=== PATIENT | female | born 1965 | race Caucasian/White ===

== ENCOUNTER 2016-10-25 10:21 | Emergency (ER) | payer SELFPAY ==
[2016-10-25] MEDS ORDERED: DELTASONE 20 MG PO ONE (10:51)
--- NOTE | 2016-10-25 10:57 | ERPHSYRPT ---
- History of Present Illness Time Seen by Provider: 10/25/16 10:45 Source: patient Exam Limitations: clinical condition Patient Subjective Stated Complaint: bit by a gnat on left eye. c/o swelling and itching Triage Nursing Assessment: ambulated to room per self. skin w/d, color normal. moderate swelling below left eye. no drainage noted. area red Physician History: PATIENT BITTEN BY SNAT OVER LEFT EYE BROW YESTERDAY COMPLAINS OF SWELLING BELOW LEFT EYE LID SINCE YESTERDAY ASSOCIATED WITH ITCHING. DENIES DIFFICULTY BREATHING OR SWELLING. Timing/Duration: yesterday Quality: itchy Severity: moderate Location: other (LEFT EYE LIDS) Possible Causes: insect sting Modifying Factors: Improves With: antihistamine, scratching Allergies/Adverse Reactions: No Known Drug Allergies Allergy (Verified 10/25/16 10:38) Home Medications: Lisinopril/Hydrochlorothiazide [Lisinopril-Hctz 20-12.5 mg Tab] 1 tab PO DAILY 06/05/12 [History] Gabapentin [Neurontin] 300 mg PO TID 04/28/14 [History] Hx Tetanus, Diphtheria Vaccination/Date Given: Yes Hx Influenza Vaccination/Date Given: No Hx Pneumococcal Vaccination/Date Given: No - Review of Systems Constitutional: No Fever, No Chills Eyes: Other (ANGIOEDEMA LEFT LOWER EYE LID, NO UPPER EYE LID, SWELLING, NO CONJUNCTIVA ERYTHERMA, DRAINAGE) Ears, Nose, & Throat: No Symptoms Respiratory: No Symptoms, No Cough, No Dyspnea Cardiac: No Symptoms, No Chest Pain, No Edema, No Syncope Abdominal/Gastrointestinal: No Abdominal Pain, No Nausea, No Vomiting, No Diarrhea Genitourinary Symptoms: No Dysuria Musculoskeletal: No Back Pain, No Neck Pain Skin: No Rash Neurological: No Dizziness, No Focal Weakness, No Sensory Changes Psychological: No Symptoms Endocrine: No Symptoms All Other Systems: Reviewed and Negative - Past Medical History Pertinent Past Medical History: Yes Neurological History: Migraines ENT History: No Pertinent History Cardiac History: Hypertension Respiratory History: No Pertinent History Endocrine Medical History: No Pertinent History Musculoskeletal History: Other GI Medical History: No Pertinent History History: No Pertinent History Psycho-Social History: No Pertinent History Female Reproductive Disorders: No Pertinent History Other Medical History: bulging disc - Past Surgical History Past Surgical History: Yes Neuro Surgical History: No Pertinent History Cardiac: No Pertinent History Respiratory: No Pertinent History Gastrointestinal: No Pertinent History Genitourinary: No Pertinent History Musculoskeletal: No Pertinent History Female Surgical History: Tubal Ligation, Other Other Surgical History: ovary removed w/cyst ,childbirth x two - Social History Smoking Status: Current every day smoker How long have you smoked: 20 Exposure to second hand smoke: No Drug Use: none Patient Lives Alone: No - Female History Hx Now: No - Nursing Vital Signs Nursing Vital Signs: Initial Vital Signs Temperature 97.8 F Temperature Source Oral Pulse Rate 96 Respiratory Rate 16 Blood Pressure [Right Arm] 117/82 Pain Intensity 5 - Physical Exam General Appearance: no apparent distress, alert Eye Exam: PERRL/EOMI, eyes nml inspection Ears, Nose, Throat Exam: normal ENT inspection, pharynx normal, moist mucous membranes Neck Exam: normal inspection, non-tender, supple, full range of motion Respiratory Exam: normal breath sounds, lungs clear, No respiratory distress Cardiovascular Exam: regular rate/rhythm, normal heart sounds Gastrointestinal/Abdomen Exam: soft, mass, No tenderness Back Exam: normal inspection, normal range of motion, No CVA tenderness, No vertebral tenderness Extremity Exam: normal inspection, normal range of motion Neurologic Exam: alert, oriented x 3, cooperative, normal mood/affect, sensation nml, No motor deficits Skin Exam: normal color, warm, dry SpO2: 97 Oxygen Delivery: Room Air Ordered Tests: Medication Summary Generic Name Dose Route Start Last Admin Trade Name Radha PRN Reason Stop Dose Admin Prednisone 40 mg 10/25/16 10:51 Deltasone 20 Mg PO 10/25/16 10:52 STAT ONE - Progress Progress Note: 10/25/16 10:55 PATIENT GIVEN PREDNISONE 40MG ORALLY Counseled pt/family regarding: diagnosis, need for follow-up - Departure Time of Disposition: 11:00 Departure Disposition: Home Clinical Impression: LEFT INFRAORBITAL SWELLING INSECT BITE Condition: Stable Critical Care Time: No Additional Instructions: TAKE OVER THE COUNTER BENADRYL 50MG EVERY 4 HOURS WHEN NOT AT WORK. CONTINUE TO APPLY ICE OVER EYE SWELLING EVERY 4 HOURS, 30 MINUTES FOR 24 HOURS. PREDNISONE 40MG DAILY FOR 5 DAYS, AND CONSULT YOUR FAMILY PHYSICIAN FOR EVALUATION IN 1 WEEK. Prescriptions: Prednisone 20 mg [Deltasone 20 mg] 2 tab PO DAILY #8 tablet
[2016-10-25] MEDS ORDERED: DELTASONE 20 MG ONE (10:58)
[2016-10-25 11:12] VITALS: BP 99/70; PULSE 91; O2SAT 96
== END 2016-10-25 11:12 | disposition home or self-care (01) ==
LOC: ED 10:21
DX: H02.845 Edema of left lower eyelid (principal); S00.262A Insect bite (nonvenomous) of left eyelid and periocular area, initial encounter; W57.XXXA Bitten or stung by nonvenomous insect and other nonvenomous arthropods, initial encounter
CPT/HCPCS: 99283; J7506

== ENCOUNTER 2016-11-18 10:45 | Emergency (ER) | payer SELFPAY ==
[2016-11-18 10:59] VITALS: O2SAT 97
[2016-11-18] MEDS ORDERED: Indocin 25 MG PO ONE (10:59)
[2016-11-18] MEDS ORDERED: Indocin 25 MG ONE ×2 (11:03)
--- NOTE | 2016-11-18 11:05 | ERPHSYRPT ---
- History of Present Illness Time Seen by Provider: 11/18/16 11:00 Source: patient Exam Limitations: no limitations Patient Subjective Stated Complaint: states began having pain in right foot last night. Triage Nursing Assessment: ambulated to room limping on right foot. skin w/d, color normal, resp easy. right great toe swollen and red. tender to touch Physician History: c/o pain in left foot base of great toe since last night Method of Injury: unknown Occurred: yesterday Quality: constant, burning Severity of Pain-Max: moderate Severity of Pain-Current: moderate Lower Extremities Pain: 1st toe: left Modifying Factors: Improves With: nothing Associated Symptoms: none Allergies/Adverse Reactions: No Known Drug Allergies Allergy (Verified 10/25/16 10:38) Home Medications: Lisinopril/Hydrochlorothiazide [Lisinopril-Hctz 20-12.5 mg Tab] 1 tab PO DAILY 06/05/12 [History] Gabapentin [Neurontin] 300 mg PO TID 04/28/14 [History] Hx Tetanus, Diphtheria Vaccination/Date Given: Yes Hx Influenza Vaccination/Date Given: No Hx Pneumococcal Vaccination/Date Given: No - Review of Systems Constitutional: No Symptoms, No Fever, No Chills Respiratory: No Symptoms Cardiac: No Symptoms Abdominal/Gastrointestinal: No Symptoms Musculoskeletal: Joint Pain (left base of great toe), Joint Swelling Skin: Induration (left base of great toe) - Past Medical History Pertinent Past Medical History: Yes Neurological History: Migraines ENT History: No Pertinent History Cardiac History: Hypertension Respiratory History: No Pertinent History Endocrine Medical History: No Pertinent History Musculoskeletal History: Other GI Medical History: No Pertinent History History: No Pertinent History Psycho-Social History: No Pertinent History Female Reproductive Disorders: No Pertinent History Other Medical History: bulging disc - Past Surgical History Past Surgical History: Yes Neuro Surgical History: No Pertinent History Cardiac: No Pertinent History Respiratory: No Pertinent History Gastrointestinal: No Pertinent History Genitourinary: No Pertinent History Musculoskeletal: No Pertinent History Female Surgical History: Tubal Ligation, Other Other Surgical History: ovary removed w/cyst ,childbirth x two - Social History Smoking Status: Current every day smoker How long have you smoked: 20 Exposure to second hand smoke: No Drug Use: none Patient Lives Alone: No - Female History Hx Now: No - Nursing Vital Signs Nursing Vital Signs: Initial Vital Signs Temperature 97.9 F Temperature Source Oral Pulse Rate 95 Respiratory Rate 18 Blood Pressure [Right Arm] 124/70 Pain Intensity [Right Foot] 7 Pain Intensity 7 - Physical Exam General Appearance: no apparent distress Foot Exam: left foot: soft tissue tenderness (left base of great toe), swelling Neuro/Tendon Exam: normal sensation Mental Status Exam: alert, oriented x 3 SpO2: 97 Oxygen Delivery: Room Air - Course Nursing assessment & vital signs reviewed: Yes Ordered Tests: Medication Summary Discontinued Medications Generic Name Dose Route Start Last Admin Trade Name Radha PRN Reason Stop Dose Admin Indomethacin 50 mg 11/18/16 10:59 11/18/16 11:04 Indocin 25 Mg PO 11/18/16 11:00 50 mg STAT ONE Administration Indomethacin Confirm 11/18/16 11:03 Indocin 25 Mg Administered 11/18/16 11:04 Dose 25 mg .ROUTE .STK-MED ONE Indomethacin Confirm 11/18/16 11:03 Indocin 25 Mg Administered 11/18/16 11:04 Dose 25 mg .ROUTE .STK-MED ONE - Progress Progress: unchanged Counseled pt/family regarding: diagnosis, need for follow-up - Departure Time of Disposition: 11:03 Departure Disposition: Home Clinical Impression: Gouty arthritis of toe of left foot Condition: Stable Critical Care Time: No Referrals: ALISON ROSE [Primary Care Provider] - Instructions: Gout Prescriptions: Indomethacin 25 mg [Indocin 25 MG] 25 mg PO TID #15 capsule
[2016-11-18 11:12] VITALS: BP 105/73; PULSE 94
== END 2016-11-18 11:18 | disposition home or self-care (01) ==
LOC: ED 10:45 → EDSTATUS 11:04 → ED 11:18
DX: M10.072 Idiopathic gout, left ankle and foot (principal)
CPT/HCPCS: 99283; A9270-GY

== ENCOUNTER 2017-05-24 11:25 | Emergency (ER) | payer OTHER, SELFPAY ==
[2017-05-24 12:02] VITALS: O2SAT 95
--- NOTE | 2017-05-24 12:25 | ERPHSYRPT ---
- History of Present Illness Time Seen by Provider: 05/24/17 12:20 Source: patient Exam Limitations: no limitations Patient Subjective Stated Complaint: pt here for pain to right foot, no injury noted. pain since saturday, Triage Nursing Assessment: pt has redness and warmth to right inner aspect of foot Physician History: The patient complains of right great toe pain, redness, and swelling for 3 days. She thinks it is gout because she had the same thing happen a few years ago to the same toe. It is difficult for her to walk. She denies fever or chills. Her past medical history significant for gout and hypertension. Method of Injury: other Occurred: days ago (3) Quality: burning, sharpness Severity of Pain-Max: severe Severity of Pain-Current: severe Lower Extremities Pain: 1st toe: right Modifying Factors: Improves With: nothing Associated Symptoms: unable to bear weight Allergies/Adverse Reactions: No Known Drug Allergies Allergy (Verified 05/24/17 12:02) Home Medications: Lisinopril/Hydrochlorothiazide [Lisinopril-Hctz 20-12.5 mg Tab] 1 tab PO DAILY 06/05/12 [History] Hx Tetanus, Diphtheria Vaccination/Date Given: Yes Hx Influenza Vaccination/Date Given: No Hx Pneumococcal Vaccination/Date Given: No Immunizations Up to Date: Yes - Review of Systems Constitutional: No Fever, No Chills Eyes: No Symptoms Ears, Nose, & Throat: No Symptoms Respiratory: No Cough, No Dyspnea Cardiac: No Chest Pain, No Edema, No Syncope Abdominal/Gastrointestinal: No Abdominal Pain, No Nausea, No Vomiting, No Diarrhea Genitourinary Symptoms: No Dysuria Musculoskeletal: Joint Redness, Joint Pain, Joint Swelling, No Back Pain, No Neck Pain Skin: No Rash Neurological: No Dizziness, No Focal Weakness, No Sensory Changes Psychological: No Symptoms Endocrine: No Symptoms Hematologic/Lymphatic: No Symptoms Immunological/Allergic: No Symptoms All Other Systems: Reviewed and Negative - Past Medical History Pertinent Past Medical History: Yes Neurological History: Migraines ENT History: No Pertinent History Cardiac History: Hypertension Respiratory History: No Pertinent History Endocrine Medical History: No Pertinent History Musculoskeletal History: Other GI Medical History: No Pertinent History History: No Pertinent History Psycho-Social History: No Pertinent History Female Reproductive Disorders: No Pertinent History Other Medical History: bulging disc - Past Surgical History Past Surgical History: Yes Neuro Surgical History: No Pertinent History Cardiac: No Pertinent History Respiratory: No Pertinent History Gastrointestinal: No Pertinent History Genitourinary: No Pertinent History Musculoskeletal: No Pertinent History Female Surgical History: Tubal Ligation, Other Other Surgical History: ovary removed w/cyst ,childbirth x two - Social History Smoking Status: Current every day smoker How long have you smoked: 20 Exposure to second hand smoke: Yes Drug Use: none Patient Lives Alone: No - Female History Hx Last Menstrual Period: post Hx Now: No - Nursing Vital Signs Nursing Vital Signs: Initial Vital Signs Temperature 98.5 F 05/24/17 11:58 Pulse Rate 82 05/24/17 11:58 Respiratory Rate 16 05/24/17 11:58 Blood Pressure 150/73 05/24/17 11:58 O2 Sat by Pulse Oximetry 95 05/24/17 11:58 Pain Scale Pain Intensity 8 - Physical Exam General Appearance: mild distress Eyes, Ears, Nose, Throat Exam: moist mucous membranes Neck Exam: non-tender, supple Cardiovascular/Respiratory Exam: chest non-tender, normal breath sounds, regular rate/rhythm, no respiratory distress Gastrointestinal/Abdominal Exam: non-tender, guarding Back Exam: normal inspection, No vertebral tenderness Hips Exam: bilateral: non-tender Legs Exam: bilateral leg: non-tender Knees Exam: bilateral knee: non-tender Ankle Exam: bilateral ankle: non-tender Foot Exam: right foot: pain, soft tissue tenderness, swelling (great toe MTP joint), left foot: non-tender, normal inspection Neuro/Tendon Exam: normal sensation, normal motor functions Mental Status Exam: alert, oriented x 3, cooperative Skin Exam: normal color, warm, dry SpO2 Interpretation: normal SpO2: 95 Oxygen Delivery: Room Air - Departure Time of Disposition: 12:23 Departure Disposition: Home Clinical Impression: Gouty arthritis of right great toe Condition: Stable Critical Care Time: No Referrals: WADE FRASER [Primary Care Provider] - Additional Instructions: You have gout of your right great toe. You were given Toradol 60 mg by IM injection in the ER. Take Toradol 10 mg 4 times a day for 5 days. Stay well hydrated. Avoid red meats. Follow-up as needed. Prescriptions: Ketorolac Tromethamine [Toradol] 10 mg PO QID #20 tablet
[2017-05-24] MEDS ORDERED: TORAdol 30 mg Injection IM ONE (12:26)
[2017-05-24] MEDS ORDERED: TORAdol 30 mg Injection ONE (12:29)
[2017-05-24 12:36] VITALS: BP 109/71; PULSE 88
== END 2017-05-24 12:49 | disposition home or self-care (01) ==
LOC: ED 11:25
DX: M10.071 Idiopathic gout, right ankle and foot (principal)
CPT/HCPCS: 99283; J1885

== ENCOUNTER 2017-12-20 12:00 | Emergency (ER) | payer OTHER ==
[2017-12-20 12:09] VITALS: O2SAT 98
--- NOTE | 2017-12-20 12:39 | ERPHSYRPT ---
- History of Present Illness Time Seen by Provider: 12/20/17 12:28 Source: patient Exam Limitations: no limitations Patient Subjective Stated Complaint: PT states "I am having a horrible gout flair up." Triage Nursing Assessment: Pt alert and oriented X 3, skin pwd. Pt ambulates with a limp. Pt let great toe joint, red, swollen, tender. Physician History: The patient is a 52-year-old female who comes in complaining of a 2 day history of left great toe joint pain, redness, and swelling. She has a history of gout. She believes this is a flareup of her gout. She does eat meat. She does not take anything to prevent gout. She has been taking ibuprofen yesterday and this morning without relief. She went to work for one hour and then had to leave because of the pain. Her past medical history significant for gout and hypertension. Method of Injury: other (gouty arthritis) Occurred: yesterday Quality: constant, sharpness Severity of Pain-Max: moderate Severity of Pain-Current: moderate Lower Extremities Pain: 1st toe: left Modifying Factors: Improves With: pain medication (ibuprofen) Associated Symptoms: none Allergies/Adverse Reactions: No Known Drug Allergies Allergy (Verified 05/24/17 12:02) Home Medications: Lisinopril/Hydrochlorothiazide [Lisinopril-Hctz 20-12.5 mg Tab] 1 tab PO DAILY 06/05/12 [History] Hx Tetanus, Diphtheria Vaccination/Date Given: Yes Hx Influenza Vaccination/Date Given: No Hx Pneumococcal Vaccination/Date Given: No Immunizations Up to Date: Yes - Review of Systems Constitutional: No Fever, No Chills Eyes: No Symptoms Ears, Nose, & Throat: No Symptoms Respiratory: No Cough, No Dyspnea Cardiac: No Chest Pain, No Edema, No Syncope Abdominal/Gastrointestinal: No Abdominal Pain, No Nausea, No Vomiting, No Diarrhea Genitourinary Symptoms: No Dysuria Musculoskeletal: Joint Redness, Joint Pain, No Back Pain, No Neck Pain Skin: No Rash Neurological: No Dizziness, No Focal Weakness, No Sensory Changes Psychological: No Symptoms Endocrine: No Symptoms Hematologic/Lymphatic: No Symptoms Immunological/Allergic: No Symptoms All Other Systems: Reviewed and Negative - Past Medical History Pertinent Past Medical History: Yes Neurological History: Migraines ENT History: No Pertinent History Cardiac History: Hypertension Respiratory History: No Pertinent History Endocrine Medical History: No Pertinent History Musculoskeletal History: Other GI Medical History: No Pertinent History History: No Pertinent History Psycho-Social History: No Pertinent History Female Reproductive Disorders: No Pertinent History Other Medical History: bulging disc - Past Surgical History Past Surgical History: Yes Neuro Surgical History: No Pertinent History Cardiac: No Pertinent History Respiratory: No Pertinent History Gastrointestinal: No Pertinent History Genitourinary: No Pertinent History Musculoskeletal: No Pertinent History Female Surgical History: Tubal Ligation, Other Other Surgical History: ovary removed w/cyst ,childbirth x two - Social History Smoking Status: Current every day smoker How long have you smoked: years Exposure to second hand smoke: Yes Drug Use: none Patient Lives Alone: No - Female History Hx Last Menstrual Period: menopaus Hx Now: No - Nursing Vital Signs Nursing Vital Signs: Initial Vital Signs Temperature 98.0 F 12/20/17 12:04 Pulse Rate 104 H 12/20/17 12:04 Respiratory Rate 18 12/20/17 12:04 Blood Pressure 116/88 12/20/17 12:04 O2 Sat by Pulse Oximetry 98 12/20/17 12:04 Pain Scale Pain Intensity 8 - Physical Exam General Appearance: alert Eyes, Ears, Nose, Throat Exam: moist mucous membranes Neck Exam: non-tender, supple Cardiovascular/Respiratory Exam: chest non-tender, normal breath sounds, regular rate/rhythm, no respiratory distress Gastrointestinal/Abdominal Exam: non-tender, guarding Back Exam: normal inspection, No vertebral tenderness Hips Exam: bilateral: normal inspection Legs Exam: bilateral leg: normal inspection Knees Exam: bilateral knee: normal inspection Ankle Exam: bilateral ankle: normal inspection Foot Exam: left foot: limited range of motion, pain (first MTP joint), soft tissue tenderness, swelling Neuro/Tendon Exam: normal sensation, normal motor functions Mental Status Exam: alert, oriented x 3, cooperative Skin Exam: normal color, warm, dry SpO2 Interpretation: normal SpO2: 98 Oxygen Delivery: Room Air - Progress Progress: improved Counseled pt/family regarding: diagnosis - Departure Time of Disposition: 12:43 Departure Disposition: Home Clinical Impression: Gout attack Condition: Stable Critical Care Time: No Referrals: WADE FRASER [Primary Care Provider] - Additional Instructions: You are having an acute gout attack. You were given Toradol 60 mg by IM in the ER. Continue with Toradol 10 mg orally 4 times a day for the next 4 days. Stay well hydrated. Follow-up as needed with your primary care doctor. Prescriptions: Ketorolac Tromethamine [Toradol] 10 mg PO QID #16 tablet
[2017-12-20] MEDS ORDERED: TORAdol 30 mg Injection IM ONE (12:42)
[2017-12-20] MEDS ORDERED: TORAdol 30 mg Injection ONE (12:48)
[2017-12-20 13:08] VITALS: BP 99/68; PULSE 80
== END 2017-12-20 13:08 | disposition home or self-care (01) ==
LOC: ED 12:00
DX: M10.9 Gout, unspecified (principal)
CPT/HCPCS: 96372; 99283; J1885

== ENCOUNTER 2018-02-10 14:52 | Emergency (ER) | payer SELFPAY ==
--- NOTE | 2018-02-10 15:27 | ERPHSYRPT ---
- History of Present Illness Time Seen by Provider: 02/10/18 15:22 Source: patient Exam Limitations: no limitations Patient Subjective Stated Complaint: pt c/o moist persistent cough, chills, weakness since Saturday 02/03. c/o ear pain with cough, sputum thick yellow Triage Nursing Assessment: Pt A/O speech clear, resp sl labored, exertional SOB , persistent cough. Physician History: The patient is a 52-year-old female complaining of a cough with sputum for one week. It has gotten worse over the past couple of days. She doesn't know if she's had a fever. She smokes. She is slightly short of breath. Her past medical history is significant for gout and hypertension. Timing/Duration: week(s) (1), gradual onset, worse Cough Quality/Degree: moderate, productive cough Possible Cause: occasional episodes, smoke exposure Modifying Factors: Improves With: coughing Associated Symptoms: cough, shortness of breath Allergies/Adverse Reactions: No Known Drug Allergies Allergy (Verified 05/24/17 12:02) Home Medications: Lisinopril/Hydrochlorothiazide [Lisinopril-Hctz 20-12.5 mg Tab] 1 tab PO DAILY 06/05/12 [History] Hx Tetanus, Diphtheria Vaccination/Date Given: Yes Hx Influenza Vaccination/Date Given: No Hx Pneumococcal Vaccination/Date Given: No Immunizations Up to Date: Yes - Review of Systems Constitutional: No Fever, No Chills Eyes: No Symptoms Ears, Nose, & Throat: No Symptoms Respiratory: Cough, Dyspnea, Wheezing Cardiac: No Chest Pain, No Edema, No Syncope Abdominal/Gastrointestinal: No Abdominal Pain, No Nausea, No Vomiting, No Diarrhea Genitourinary Symptoms: No Dysuria Musculoskeletal: No Back Pain, No Neck Pain Skin: No Rash Neurological: No Dizziness, No Focal Weakness, No Sensory Changes Psychological: No Symptoms Endocrine: No Symptoms Hematologic/Lymphatic: No Symptoms Immunological/Allergic: No Symptoms All Other Systems: Reviewed and Negative - Past Medical History Pertinent Past Medical History: Yes Neurological History: Migraines ENT History: No Pertinent History Cardiac History: Hypertension Respiratory History: No Pertinent History Endocrine Medical History: No Pertinent History Musculoskeletal History: Other GI Medical History: No Pertinent History History: No Pertinent History Psycho-Social History: No Pertinent History Female Reproductive Disorders: No Pertinent History Other Medical History: bulging disc - Past Surgical History Past Surgical History: Yes Neuro Surgical History: No Pertinent History Cardiac: No Pertinent History Respiratory: No Pertinent History Gastrointestinal: No Pertinent History Genitourinary: No Pertinent History Musculoskeletal: No Pertinent History Female Surgical History: Tubal Ligation, Other Other Surgical History: ovary removed w/cyst ,childbirth x two - Social History Smoking Status: Current every day smoker How long have you smoked: years Exposure to second hand smoke: Yes Drug Use: none Patient Lives Alone: No - Nursing Vital Signs Nursing Vital Signs: Initial Vital Signs Temperature 98.9 F 02/10/18 14:53 Pulse Rate 117 H 02/10/18 14:53 Respiratory Rate 24 02/10/18 14:53 Blood Pressure 98/68 02/10/18 14:53 O2 Sat by Pulse Oximetry 93 L 02/10/18 14:53 Pain Scale Pain Intensity 7 - Physical Exam General Appearance: mild distress Eye Exam: PERRL/EOMI, eyes nml inspection Ears, Nose, Throat Exam: normal ENT inspection, TMs normal, pharynx normal, moist mucous membranes Neck Exam: normal inspection, non-tender, supple, full range of motion Respiratory Exam: rhonchi, wheezing Cardiovascular Exam: regular rate/rhythm, normal heart sounds Gastrointestinal/Abdomen Exam: soft, No tenderness Pelvic Exam: not done Rectal Exam: not done Back Exam: normal inspection, No CVA tenderness, No vertebral tenderness Extremity Exam: normal inspection, normal range of motion Neurologic Exam: alert, oriented x 3, cooperative, normal mood/affect, sensation nml, No motor deficits Skin Exam: normal color, warm, dry, No rash Lymphatic Exam: No adenopathy SpO2 Interpretation: normal SpO2: 93 Oxygen Delivery: Room Air - Radiology Exams Chest X-ray Interpretation: Reviewed by me, Teleradiologist Report (per Dr Quiros), Negative Ordered Tests: Active Orders 24 hr Category Date Time Status CHEST 2 VIEWS (PA AND LAT) Stat Exams 02/10/18 15:28 Completed Respiratory Nebulizer STAT RT 02/10/18 15:29 Active Medication Summary Discontinued Medications Generic Name Dose Route Start Last Admin Trade Name Freq PRN Reason Stop Dose Admin Albuterol Sulfate 2.5 mg 02/10/18 15:28 02/10/18 15:59 Proventil 2.5 Mg/3 Ml Neb IH 02/10/18 15:29 2.5 mg STAT ONE Administration Albuterol Sulfate Confirm 02/10/18 15:48 Proventil 2.5 Mg/3 Ml Neb Administered 02/10/18 15:49 Dose 2.5 mg IH .STK-MED ONE Ceftriaxone Sodium 1,000 mg 02/10/18 15:29 02/10/18 15:51 Rocephin 1000 Mg Inj IM 02/10/18 15:30 1,000 mg STAT ONE Administration Ceftriaxone Sodium Confirm 02/10/18 15:45 Rocephin 1000 Mg Inj Administered 02/10/18 15:46 Dose 1,000 mg .ROUTE .STK-MED ONE Lidocaine HCl Confirm 02/10/18 15:45 Xylocaine 1% Hcl 20 Ml Mdv Administered 02/10/18 15:46 Dose 2 ml .ROUTE .STK-MED ONE - Progress Progress: improved Air Movement: good Blood Culture(s) Obtained: No Antibiotics given: Yes Counseled pt/family regarding: diagnosis, rad results - Departure Time of Disposition: 16:01 Departure Disposition: Home Clinical Impression: Bronchitis Condition: Stable Critical Care Time: No Referrals: WADE FRASER [Primary Care Provider] - Additional Instructions: You have bronchitis. You were given an albuterol breathing treatment and Rocephin 1 g by IM in the ER. Take azithromycin 500 mg today and 250 mg daily for days 2 through 5. Take prednisone 60 mg daily for 5 days. Take Tessalon Perle 100 mg every 8 hours as needed for cough. Follow-up with your primary medical doctor as needed. Prescriptions: Benzonatate [Tessalon Perle] 100 mg PO Q8H PRN PRN #12 capsule PRN Reason: Cough Azithromycin 250 mg [Zithromax 250 MG TABLET] 250 mg PO ZPACK #6 tablet Prednisone 20 mg [Deltasone 20 mg] 3 tab PO DAILY #15 tablet
[2018-02-10] MEDS ORDERED: PROVENTIL 2.5 MG/3 ML NEB IH ONE ×2 (15:28→15:48)
[2018-02-10] MEDS ORDERED: Rocephin 1000 MG INJ IM ONE (15:29)
[2018-02-10] MEDS ORDERED: XYLOCAINE 1% HCL 20 ML MDV ONE (15:45)
[2018-02-10] MEDS ORDERED: Rocephin 1000 MG INJ ONE (15:45)
--- NOTE | 2018-02-10 15:53 | XRAY ---
Indication: Cough 1 week. Comparison: May 23, 2016. PA/lateral chest remains clear. Heart and mediastinal structures within normal limits. Bony thorax intact again with mild degenerative changes and mild levoscoliosis. Impression: Stable nonacute chest with chronic features.
[2018-02-10 16:19] VITALS: BP 89/56; PULSE 78; O2SAT 94
== END 2018-02-10 16:20 | disposition home or self-care (01) ==
LOC: ED 14:52
DX: J40 Bronchitis, not specified as acute or chronic (principal); R06.02 Shortness of breath; I10 Essential (primary) hypertension; Z79.899 Other long term (current) drug therapy
CPT/HCPCS: 71046; 94640; 96372; 99284; J7609; J0696; A9270-GY

== ENCOUNTER 2018-11-13 07:22 | Emergency (ER) | payer SELFPAY ==
--- NOTE | 2018-11-13 07:46 | ERPHSYRPT ---
- History of Present Illness Time Seen by Provider: 11/13/18 07:31 Source: patient Exam Limitations: no limitations Physician History: Pt states, she was treated conservatively 5-6 years ago with left scaphoid fracture. She is not sure if it has ever healed. She has been lifting o lot with her left hand recently, developed pain in her left radial dorsal wrist area , increasing, when moving her thumb. She denies direct injury, no numbness, or discoloration, no other complaints. She started noticing pain about 2 days ago, but overnight the pain became so severe, that she can barely move her thumb. She has been taking Ibuprofen as needed, denies taking any medicines today. Occurred: days ago (2) Method of Injury: unknown Quality: constant Severity of Pain-Max: moderate Severity of Pain-Current: moderate Extremities Pain Location: wrist: left, thumb: left Modifying Factors: Improves With: immobilization, movement Associated Symptoms: none Allergies/Adverse Reactions: No Known Drug Allergies Allergy (Verified 05/24/17 12:02) Home Medications: Lisinopril/Hydrochlorothiazide [Lisinopril-Hctz 20-12.5 mg Tab] 1 tab PO DAILY 06/05/12 [History] Hx Tetanus, Diphtheria Vaccination/Date Given: Yes Hx Influenza Vaccination/Date Given: No Hx Pneumococcal Vaccination/Date Given: No - Review of Systems Constitutional: No Symptoms Ears, Nose, & Throat: No Symptoms Respiratory: No Symptoms Cardiac: No Symptoms Abdominal/Gastrointestinal: No Symptoms Musculoskeletal: Other (left wrist and thumb pain) Neurological: No Symptoms All Other Systems: Reviewed and Negative - Past Medical History Pertinent Past Medical History: Yes Neurological History: Migraines ENT History: No Pertinent History Cardiac History: Hypertension Respiratory History: No Pertinent History Endocrine Medical History: No Pertinent History Musculoskeletal History: Other GI Medical History: No Pertinent History History: No Pertinent History Psycho-Social History: No Pertinent History Female Reproductive Disorders: No Pertinent History Other Medical History: bulging disc - Past Surgical History Past Surgical History: Yes Neuro Surgical History: No Pertinent History Cardiac: No Pertinent History Respiratory: No Pertinent History Gastrointestinal: No Pertinent History Genitourinary: No Pertinent History Musculoskeletal: No Pertinent History Female Surgical History: Tubal Ligation, Other Other Surgical History: ovary removed w/cyst ,childbirth x two - Social History Smoking Status: Current every day smoker How long have you smoked: years Exposure to second hand smoke: Yes Drug Use: none Patient Lives Alone: No - Nursing Vital Signs Nursing Vital Signs: Initial Vital Signs Temperature 97.7 F 11/13/18 07:30 Pulse Rate 81 11/13/18 07:30 Respiratory Rate 18 11/13/18 07:30 Blood Pressure 97/64 11/13/18 07:30 O2 Sat by Pulse Oximetry 98 11/13/18 07:30 Pain Scale Pain Intensity 6 - Physical Exam General Appearance: no apparent distress Eyes, Ears, Nose, Throat Exam: normal ENT inspection Neck Exam: normal inspection, non-tender Cardiovascular/Respiratory Exam: chest non-tender, normal breath sounds, heart sounds normal Abdominal Exam: non-tender Back Exam: normal inspection, No vertebral tenderness Shoulder Exam: normal inspection Wrist Exam: normal inspection, no evidence of injury, limited ROM (due to pain.) , pain, soft tissue tenderness (dorsal, radial wrist and base of the dorsal thumb.), No abrasions, No deformity, No ecchymosis Hand Exam: normal inspection, no evidence of injury, No bone tenderness Neuro/Tendon Exam: normal sensation, normal motor functions Mental Status Exam: alert, oriented x 3, cooperative Skin Exam: normal color, warm, dry, No rash SpO2 Interpretation: normal O2 Delivery: Room Air - Course Nursing assessment & vital signs reviewed: Yes - Radiology Exams Left Wrist X-ray Interpretation: Interpreted by me, Other (nonunion of the scaphoid, DJD) Ordered Tests: Active Orders 24 hr Category Date Time Status Sling Application STAT Care 11/13/18 08:01 Ordered Splint STAT Care 11/13/18 08:01 Ordered WRIST (MIN 3 VIEWS) Stat Exams 11/13/18 07:35 Taken - Progress Progress: unchanged Progress Note: 11/13/18 08:02 We reviewed her X ray, discussed the result with her, she was supplied with velcro splint and sling, advised to keep arm elevated, apply cold compresses to swelling, and follow up with orthopedic surgeon next wee to discuss possible repair. 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
[2018-11-13 08:25] VITALS: BP 100/64; PULSE 70; O2SAT 97
--- NOTE | 2018-11-13 10:03 | XRAY ---
Indication: Left wrist pain. History scaphoid fracture 6 years ago. No new injury. Comparison: April 29, 2011. 3 views of the left wrist demonstrates new nondisplaced proximal scaphoid fracture with subcortical cysts and moderate 1st metacarpal multangular degenerative changes. Stable distal radius tiny heterotopic ossifications medially. No other bony, articular, or soft tissue abnormalities.
== END 2018-11-13 08:25 | disposition home or self-care (01) ==
LOC: ED 07:22
DX: M19.032 Primary osteoarthritis, left wrist (principal); M25.532 Pain in left wrist
CPT/HCPCS: 73110; 99283; L3908

== ENCOUNTER 2022-09-14 12:09 | Emergency (ER) | payer MEDICAID ==
--- NOTE | 2022-09-14 12:11 | ERPHSYRPT ---
- History of Present Illness Time Seen by Provider: 09/14/22 12:11 Source: patient Exam Limitations: no limitations Physician History: This 57-year-old white female patient who for the last 2 weeks has been having intermittent coughing episodes. The cough is dry. She also has other flulike symptoms including congestion and body aches. She is having increasing shortn ess of breath over this period of time as well. She denies chest pain. The patient has a history of hypertension and gout. She has had no vomiting or diarrhea. She has not measured a fever. Patient does smoke cigarettes daily. Timing/Duration: week(s) (2), intermittent, worse Severity of Dyspnea-Max: mild Severity of Dyspnea-Current: mild Possible Cause: no prior episodes Modifying Factors: Improves With: coughing (Dry) Associated Symptoms: cough, No chest pain/discomfort, No fever, No wheezing, No weakness, No calf pain, No dizziness Allergies/Adverse Reactions: Sulfa (Sulfonamide Antibiotics) Allergy (Verified 09/14/22 12:14) Home Medications: Lisinopril/Hydrochlorothiazide [Lisinopril-Hctz 20-12.5 mg Tab] 1 tab PO DAILY 06/05/12 [History] Allopurinol 100 mg [Zyloprim 100 mg] 100 mg PO DAILY 09/14/22 [History] Hx Tetanus, Diphtheria Vaccination/Date Given: Yes Hx Influenza Vaccination/Date Given: No Hx Pneumococcal Vaccination/Date Given: No Travel Risk - International Travel Have you traveled outside of the country in past 3 weeks: No - Coronavirus Screening Are you exhibiting any of the following symptoms?: Yes Symptoms: Cough: New Onset, Shortness of Breath (Mild), Headaches/Body Aches/Fatigue Close contact with a COVID-19 positive Pt in past 14-21 Days: No - Review of Systems Constitutional: No Symptoms Eyes: No Symptoms Ears, Nose, & Throat: No Symptoms Respiratory: Cough, Dyspnea (Mild) Cardiac: No Symptoms Abdominal/Gastrointestinal: No Symptoms Genitourinary Symptoms: No Symptoms Musculoskeletal: Arthralgias, Myalgias Skin: No Symptoms Neurological: No Symptoms Psychological: No Symptoms Endocrine: No Symptoms Hematologic/Lymphatic: No Symptoms Immunological/Allergic: No Symptoms All Other Systems: Reviewed and Negative - Past Medical History Pertinent Past Medical History: Yes Neurological History: Migraines ENT History: No Pertinent History Cardiac History: Hypertension Respiratory History: No Pertinent History Endocrine Medical History: No Pertinent History Musculoskeletal History: Other GI Medical History: No Pertinent History History: No Pertinent History Psycho-Social History: No Pertinent History Female Reproductive Disorders: No Pertinent History Other Medical History: bulging disc - Past Surgical History Past Surgical History: Yes Neuro Surgical History: No Pertinent History Cardiac: No Pertinent History Respiratory: No Pertinent History Gastrointestinal: No Pertinent History Genitourinary: No Pertinent History Musculoskeletal: No Pertinent History Female Surgical History: Tubal Ligation, Other Other Surgical History: ovary removed w/cyst ,childbirth x two - Social History Smoking Status: Current every day smoker How long have you smoked: years Exposure to second hand smoke: Yes Drug Use: none Patient Lives Alone: No - Nursing Vital Signs Nursing Vital Signs: Initial Vital Signs Temperature 97.7 F 09/14/22 12:12 Pulse Rate 98 H 09/14/22 12:12 Respiratory Rate 20 09/14/22 12:12 Blood Pressure 120/74 09/14/22 12:12 O2 Sat by Pulse Oximetry 97 09/14/22 12:12 Pain Scale Pain Intensity 5 - Physical Exam General Appearance: no apparent distress, alert, anxiety Eye Exam: PERRL/EOMI, eyes nml inspection Ears, Nose, Throat Exam: hearing grossly normal, normal ENT inspection, normal pharynx Neck Exam: normal inspection, non-tender, supple, full range of motion Respiratory Exam: normal breath sounds, lungs clear, airway intact, No chest tenderness, No respiratory distress Cardiovascular/Chest Exam: normal heart sounds, regular rate/rhythm Abdominal/Gastrointestinal Exam: soft, normal bowel sounds, No tenderness Rectal Exam: not done Extremity Exam: non-tender, normal range of motion, normal inspection Neurologic Exam: alert, oriented x 3, cooperative, design coordinator II-XII nml as tested, normal mood/affect, nml cerebellar function, nml station & gait, sensation nml Skin Exam: normal color, warm, dry Lymphatic Exam: No adenopathy SpO2 Interpretation: normal O2 Delivery: Room Air - Course Nursing assessment & vital signs reviewed: Yes EKG Interpreted by Me: RATE (91), Sinus Rhythm, NORMAL AXIS, NORMAL INTERVALS, NORMAL QRS, NORMAL ST-T, Other (No acute ischemic changes on today's twelve-lead EKG.) Ordered Tests: Active Orders 24 hr Category Date Time Status Transportation Refrigeration Technician STAT Care 09/14/22 12:21 Active EKG-ER Only STAT Care 09/14/22 12:19 Active IV Insertion STAT Care 09/14/22 12:19 Active Pulse Oximetry (ED) STAT Care 09/14/22 12:19 Active CHEST 1 VIEW (PORTABLE) Stat Exams 09/14/22 12:20 Completed CHEST WITH CONTRAST [CT] Stat Exams 09/14/22 14:12 Completed BLOOD CULTURE Stat Lab 09/14/22 12:47 Received CBC W DIFF Stat Lab 09/14/22 12:40 Completed CMP Stat Lab 09/14/22 12:40 Completed D-DIMER QUANTITATIVE Stat Lab 09/14/22 12:40 Completed NT PRO BNPII Stat Lab 09/14/22 12:40 Completed PROTIME WITH INR Stat Lab 09/14/22 12:40 Completed Medication Summary Discontinued Medications Generic Name Dose Route Start Last Admin Trade Name Freq PRN Reason Stop Dose Admin Methylprednisolone Sodium 0 mg 09/14/22 12:19 09/14/22 12:37 Succinate 125 mg/ Sterile IV 09/14/22 12:20 125 mg Water 2 ml STAT ONE Administration Sodium Chloride 500 mls @ 500 mls/hr 09/14/22 14:09 09/14/22 14:13 Sodium Chloride 0.9% 500 Ml IV 09/14/22 15:08 500 mls/hr .Q1H ONE Administration Sodium Chloride Confirm 09/14/22 14:11 Sodium Chloride 0.9% 500 Ml Administered 09/14/22 14:12 Dose 500 mls @ ud IV .STK-MED ONE Methylprednisolone Sodium Succinate Confirm 09/14/22 12:36 Methylprednis Sod Succ 125 Mg/2 Ml Vial Administered 09/14/22 12:37 Dose 125 mg .ROUTE .STK-MED ONE Sterile Water Confirm 09/14/22 12:36 Water For Injection,Sterile 10 Ml Vial Administered 09/14/22 12:37 Dose 10 ml IJ .STK-MED ONE Lab/Rad Data: Laboratory Result Diagrams 09/14/22 12:40 09/14/22 12:40 Laboratory Results 09/14/22 09/14/22 09/14/22 Range/Units 12:41 12:40 12:40 WBC (4.0-10.5) x10^3/uL RBC (4.1-5.4) x10^6/uL Hgb (12.0-16.0) g/dL Hct (35-47) % MCV (78-100) fL MCH (26-32) pg MCHC (32-36) g/dL RDW (11.5-14.0) % Plt Count (150-450) x10^3/uL MPV (7.5-11.0) fL Gran % (36.0-66.0) % Immature Gran % (Auto) (0.00-0.4) % Nucleat RBC Rel Count (0.00-0.1) % Eos # (Auto) (0-0.5) x10^3/uL Immature Gran # (Auto) (0.00-0.03) x10^3u/L Absolute Lymphs (auto) (1.0-4.6) x10^3/uL Absolute Monos (auto) (0.0-1.3) x10^3/uL Absolute Nucleated RBC (0.00-0.01) x10^3u/L Lymphocytes % (24.0-44.0) % Monocytes % (0.0-12.0) % Eosinophils % (0.00-5.0) % Basophils % (0.0-0.4) % Absolute Granulocytes (1.4-6.9) x10^3/uL Basophils # (0-0.4) x10^3/uL PT 10.1 (9.4-12.5) SECONDS INR 0.92 (0.8-3.0) D-Dimer 1.08 H* (0.0-0.50) mg/L Sodium (137-145) mmol/L Potassium (3.5-5.1) mmol/L Chloride (98-107) mmol/L Carbon Dioxide (22-30) mmol/L Anion Gap (5-15) MEQ/L BUN (7-17) mg/dL Creatinine (0.52-1.04) mg/dL Estimated GFR ML/MIN Glucose (74-106) mg/dL Calcium (8.4-10.2) mg/dL Total Bilirubin (0.2-1.3) mg/dL AST (14-36) U/L ALT (0-35) U/L Alkaline Phosphatase (38-126) U/L NT-Pro-B Natriuret Pep < 20.0 (<300) pg/mL Serum Total Protein (6.3-8.2) g/dL Albumin (3.5-5.0) g/dL Influenza Type A Ag NEGATIVE (NEGATIVE) Influenza Type B Ag NEGATIVE (NEGATIVE) RSV (PCR) NEGATIVE (NEGATIVE) SARS-CoV-2 (PCR) NEGATIVE (NEGATIVE) 09/14/22 09/14/22 Range/Units 12:40 12:40 WBC 7.1 (4.0-10.5) x10^3/uL RBC 4.55 (4.1-5.4) x10^6/uL Hgb 13.4 (12.0-16.0) g/dL Hct 41.7 (35-47) % MCV 91.6 (78-100) fL MCH 29.5 (26-32) pg MCHC 32.1 (32-36) g/dL RDW 13.5 (11.5-14.0) % Plt Count 296 (150-450) x10^3/uL MPV 9.6 (7.5-11.0) fL Gran % 59.2 (36.0-66.0) % Immature Gran % (Auto) 0.3 (0.00-0.4) % Nucleat RBC Rel Count 0.0 (0.00-0.1) % Eos # (Auto) 0.18 (0-0.5) x10^3/uL Immature Gran # (Auto) 0.02 (0.00-0.03) x10^3u/L Absolute Lymphs (auto) 2.20 (1.0-4.6) x10^3/uL Absolute Monos (auto) 0.45 (0.0-1.3) x10^3/uL Absolute Nucleated RBC 0.00 (0.00-0.01) x10^3u/L Lymphocytes % 30.9 (24.0-44.0) % Monocytes % 6.3 (0.0-12.0) % Eosinophils % 2.5 (0.00-5.0) % Basophils % 0.8 (0.0-0.4) % Absolute Granulocytes 4.21 (1.4-6.9) x10^3/uL Basophils # 0.06 (0-0.4) x10^3/uL PT (9.4-12.5) SECONDS INR (0.8-3.0) D-Dimer (0.0-0.50) mg/L Sodium 143 (137-145) mmol/L Potassium 4.3 (3.5-5.1) mmol/L Chloride 103 (98-107) mmol/L Carbon Dioxide 29 (22-30) mmol/L Anion Gap 15.3 H (5-15) MEQ/L BUN 34 H (7-17) mg/dL Creatinine 0.98 (0.52-1.04) mg/dL Estimated GFR > 60.0 ML/MIN Glucose 126 H (74-106) mg/dL Calcium 9.0 (8.4-10.2) mg/dL Total Bilirubin 0.30 (0.2-1.3) mg/dL AST 32 (14-36) U/L ALT 27 (0-35) U/L Alkaline Phosphatase 77 (38-126) U/L NT-Pro-B Natriuret Pep (<300) pg/mL Serum Total Protein 7.2 (6.3-8.2) g/dL Albumin 4.1 (3.5-5.0) g/dL Influenza Type A Ag (NEGATIVE) Influenza Type B Ag (NEGATIVE) RSV (PCR) (NEGATIVE) SARS-CoV-2 (PCR) (NEGATIVE) - Progress Progress: improved, re-examined Air Movement: good Progress Note: 09/14/22 13:09 Chest x-ray was read by the radiologist and the impression was reviewed by me. There is new minimal left basilar subsegmental atelectasis/scarring no mention of infiltrate. 09/14/22 15:[address] with contrast shows no acute cardiopulmonary process. This study is negative for pulmonary embolus. This patient's medical issue is 1 of moderate complexity. The level of medical complexity and the work-up performed is based on review of the patient's past medical history, medication list, drug allergy list, history of present illness, and physical findings on examination. The work-up performed placement of intravenous line, infusion of normal saline solution, infusion of Solu-Medrol intravenously, CBC, CMP, twelve-lead EKG, D-dimer, troponin. The results of the study were reviewed. No evidence of any acute cardiopulmonary process, pulmonary embolus or myocardial infarction. The patient appears to have upper respiratory infection. We will write a prescription for a Z-Norris, and steroid. Patient is to stop smoking. Patient is to follow-up with her primary care physician for further evaluation management. Blood Culture(s) Obtained: Yes Antibiotics given: Yes (Z-Norris sent to pharmacy via computer) Counseled pt/family regarding: lab results, diagnosis, need for follow-up, rad results Medical Desision Making - Discussion of managment Reviewed:: Test results Agreed on:: Treatment plan, need for follow-up - Diagnostic Testing Diagnostic test were ordered, analyzed, and reviewed by me: Yes Radiological Interpretation: Reviewed by me, Teleradiologist Report - Risk of complications The pt has a mod risk of morbidity or mortality based on: Need for prescription drug management - Departure Departure Disposition: Home Clinical Impression: Needs smoking cessation education, Upper respiratory infection Condition: Stable Critical Care Time: No Referrals: WADE FRASER, [facility] [employer] [Nurse Practioner] - Follow up/PCP as directed Additional Instructions: Drink plenty of fluids. Stop any type of exposure to smoke of any kind. Take your medication as prescribed. Follow-up with your primary care provider for further evaluation management. Prescriptions: Prednisone 10 mg [Deltasone 10 mg] 10 mg PO TID #12 tablet Azithromycin 250 mg [Zithromax 250 MG TABLET] 250 mg PO ZPACK #6 tablet
[2022-09-14] MEDS ORDERED: solu-MEDROL 125 MG, Sterile H2O 10 ml 2 ML IV ONE ×2 (12:19)
[2022-09-14] MEDS ORDERED: Sterile H2O 10 ml IJ ONE (12:36)
[2022-09-14] MEDS ORDERED: solu-MEDROL ONE (12:36)
--- NOTE | 2022-09-14 12:45 | XRAY ---
Indication: Cough and short of breath. Comparison: February 10, 2018 Portable chest demonstrates new minimal left base subsegmental atelectasis/scarring. Remaining heart and lungs unremarkable. Bony thorax intact again with mild degenerative changes and minimal levoscoliosis.
[2022-09-14 13:00] LABS: Absolute Neutrophil Ct (ANC) 4.21 x10^3/uL (1.4-6.9); BASOPHIL % 0.8 % (0.0-0.4); Basophil (Absolute #) 0.06 x10^3/uL (0-0.4); Eosinophil % 2.5 % (0.00-5.0); Eosinophil (Absolute #) 0.18 x10^3/uL (0-0.5); Hematocrit 41.7 % (35-47); Hemoglobin 13.4 g/dL (12.0-16.0); IMMATURE GRAN # 0.02 x10^3u/L (0.00-0.03); IMMATURE GRAN % 0.3 % (0.00-0.4); Lymphocytes % 30.9 % (24.0-44.0); Mean Cell Volume 91.6 fL (78-100); Mean Corpuscular Hemoglobin 29.5 pg (26-32); Mean Corpuscular Hgb Concent. 32.1 g/dL (32-36); Mean Platelet Volume 9.6 fL (7.5-11.0); Monocyte (Absolute #) 0.45 x10^3/uL (0.0-1.3); Monocytes % 6.3 % (0.0-12.0); Neutrophil % 59.2 % (36.0-66.0); Platelet Count 296 x10^3/uL (150-450); Red Blood Count 4.55 x10^6/uL (4.1-5.4); Red Cell Distribution Width 13.5 % (11.5-14.0); White Blood Count 7.1 x10^3/uL (4.0-10.5)
[2022-09-14 13:16] LABS: ALBUMIN 4.1 g/dL (3.5-5.0); ALKALINE PHOSPHATASE 77 U/L (38-126); ANION GAP 15.3 MEQ/L (5-15); BLOOD UREA NITROGEN 34 mg/dL (7-17); CHLORIDE 103 mmol/L (98-107); Carbon Dioxide 29 mmol/L (22-30); Creatinine 1 0.98 mg/dL (0.52-1.04); EST GLOMERULAR FILTRATION RATE > 60.0 ML/MIN; Glucose 126 mg/dL (74-106); Potassium 4.3 mmol/L (3.5-5.1); SGOT/AST 32 U/L (14-36); SGPT/ALT 27 U/L (0-35); SODIUM 143 mmol/L (137-145); Total Protein 7.2 g/dL (6.3-8.2)
[2022-09-14 13:22] LABS: INR 0.92 (0.8-3.0); PROTIME 10.1 SECONDS (9.4-12.5)
[2022-09-14 13:24] LABS: D-DIMER QUANTITATIVE 1.08 mg/L (0.0-0.50)
[2022-09-14 13:33] LABS: INFLUENZA A NEGATIVE (NEGATIVE); INFLUENZA B NEGATIVE (NEGATIVE); RESPIRATORY SYNCTIAL VIRUS NEGATIVE (NEGATIVE); SARS-CoV-2 Xpert Express NEGATIVE (NEGATIVE)
[2022-09-14] MEDS ORDERED: Sodium Chloride 0.9% 500 ML 500 ML IV ONE ×2 (14:09→14:11)
--- NOTE | 2022-09-14 15:10 | XRAY ---
Indication: Multiple contiguous axial images obtained through the chest using 100 cc Isovue 370 contrast and PE protocol. Comparison: None Adequate opacification of the pulmonary arteries to include the lobar and segmental branches. No pulmonary embolus. Heart not enlarged. Aorta is normal in course and caliber. Small subcarinal and right hilar calcified nodes. No pathologic mediastinal/hilar lymphadenopathy. Lungs demonstrates minimal biapical subpleural cystic changes, small right lower lobe calcified granuloma and minimal bibasilar fibrosis/scarring. No infiltrate, consolidation, or effusion. Bony thorax intact with mild/moderate degenerative changes throughout the spine. Limited upper abdomen demonstrates fatty liver, splenic calcified granulomas and incompletely visualized 4.4 cm right mid renal cyst. Impression: 1. Negative pulmonary embolus. No acute cardiopulmonary abnormalities. 2. Chronic findings including biapical subpleural cystic changes, bibasilar fibrosis/scarring, degenerative spondylosis, fatty liver, incompletely visualized right renal cyst, and old granulomatous disease.
[2022-09-14 15:25] VITALS: BP 136/82; PULSE 84; O2SAT 97
== END 2022-09-14 15:30 | disposition home or self-care (01) ==
LOC: ED 12:09
DX: J06.9 Acute upper respiratory infection, unspecified (principal); R05.9 Cough, unspecified; R09.81 Nasal congestion; M79.10 Myalgia, unspecified site; R06.02 Shortness of breath; I10 Essential (primary) hypertension; Z79.52 Long term (current) use of systemic steroids; Z79.899 Other long term (current) drug therapy; Z72.0 Tobacco use
CPT/HCPCS: 0241U; 36000; 36415; 71045; 71260; 80053; 83880; 85025; 85379; 85610; 87040; 93005; 93041; 94760; 96374; 99284; J2930

== ENCOUNTER 2023-05-30 07:00 | Emergency (ER) | payer SELFPAY ==
[2023-05-30 07:19] VITALS: TEMP 98.2
[2023-05-30] MEDS ORDERED: TORAdol 30 mg Injection IM ONE (07:29)
[2023-05-30] MEDS ORDERED: TORAdol 30 mg Injection ONE (07:41)
[2023-05-30 07:56] LABS: Absolute Neutrophil Ct (ANC) 10.42 x10^3/uL (1.4-6.9); BASOPHIL % 0.3 % (0.0-0.4); Basophil (Absolute #) 0.04 x10^3/uL (0-0.4); Eosinophil % 0.5 % (0.00-5.0); Eosinophil (Absolute #) 0.07 x10^3/uL (0-0.5); Hematocrit 44.7 % (35-47); Hemoglobin 14.5 g/dL (12.0-16.0); IMMATURE GRAN # 0.06 x10^3u/L (0.00-0.03); IMMATURE GRAN % 0.5 % (0.00-0.4); Lymphocyte (Absolute #) 1.47 x10^3/uL (1.0-4.6); Lymphocytes % 11.4 % (24.0-44.0); Mean Cell Volume 92.2 fL (78-100); Mean Corpuscular Hemoglobin 29.9 pg (26-32); Mean Corpuscular Hgb Concent. 32.4 g/dL (32-36); Mean Platelet Volume 9.7 fL (7.5-11.0); Monocytes % 6.2 % (0.0-12.0); Neutrophil % 81.1 % (36.0-66.0); Platelet Count 307 x10^3/uL (150-450); Red Blood Count 4.85 x10^6/uL (4.1-5.4); Red Cell Distribution Width 13.1 % (11.5-14.0); White Blood Count 12.9 x10^3/uL (4.0-10.5)
--- NOTE | 2023-05-30 08:03 | ERPHSYRPT ---
- History of Present Illness Time Seen by Provider: 05/30/23 07:11 Source: patient Exam Limitations: no limitations Patient Subjective Stated Complaint: Right elbow pain Triage Nursing Assessment: Patient ambulated back to ED and transferred self to bed. Patient A+O X3. Patient's skin pink, warm and dry. Patient complains of right elbow warmth, redness and pain for 2 days. Patient's right elbow noted to be red, warm and swollen. Patient complains of pain /10. Patient denies any trauma or injury. Physician History: 58 years old female presented in the ER with chief complaint of right elbow pain and swelling gradually worsening for the last 2 days. Reports having dull aching to sharp pain with swelling in the back of elbow without any fall or trauma. No restricted range of motion but somewhat painful. No distal numbness tingling or weakness. No fever or chills reported. Reports having similar symptoms few years back with bursitis. Allergies/Adverse Reactions: Sulfa (Sulfonamide Antibiotics) Allergy (Verified 05/30/23 07:10) Home Medications: Lisinopril/Hydrochlorothiazide [Lisinopril-Hctz 20-12.5 mg Tab] 1 tab PO DAILY 06/05/12 [History] Allopurinol 100 mg [Zyloprim 100 mg] 100 mg PO DAILY 09/14/22 [History] Hx Tetanus, Diphtheria Vaccination/Date Given: Yes Hx Influenza Vaccination/Date Given: No Hx Pneumococcal Vaccination/Date Given: No Immunizations Up to Date: Yes Travel Risk - International Travel Have you traveled outside of the country in past 3 weeks: No - Coronavirus Screening Are you exhibiting any of the following symptoms?: No Close contact with a COVID-19 positive Pt in past 14-21 Days: No - Vaccine Status Have you recieved a Covid-19 vaccination: No [employer]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 - Vaccination Dates Date of 2cond Vaccination (if applicable): 2020 - Review of Systems Constitutional: No Symptoms Ears, Nose, & Throat: No Symptoms Respiratory: No Symptoms Cardiac: No Symptoms Abdominal/Gastrointestinal: No Symptoms Genitourinary Symptoms: No Symptoms Musculoskeletal: Joint Redness, Joint Pain, Joint Swelling Skin: No Symptoms Neurological: No Symptoms Endocrine: No Symptoms Hematologic/Lymphatic: No Symptoms - Past Medical History Pertinent Past Medical History: Yes Neurological History: Migraines ENT History: No Pertinent History Cardiac History: Hypertension Respiratory History: No Pertinent History Endocrine Medical History: No Pertinent History Musculoskeletal History: Other GI Medical History: No Pertinent History History: No Pertinent History Psycho-Social History: No Pertinent History Female Reproductive Disorders: No Pertinent History Other Medical History: bulging disc - Past Surgical History Past Surgical History: Yes Neuro Surgical History: No Pertinent History Cardiac: No Pertinent History Respiratory: No Pertinent History Gastrointestinal: No Pertinent History Genitourinary: No Pertinent History Musculoskeletal: No Pertinent History Female Surgical History: Tubal Ligation, Other Other Surgical History: ovary removed w/cyst ,childbirth x two - Social History Smoking Status: Current every day smoker How long have you smoked: years Exposure to second hand smoke: Yes Drug Use: none Patient Lives Alone: No - Nursing Vital Signs Nursing Vital Signs: Initial Vital Signs Temperature 98.2 F 05/30/23 07:12 Pulse Rate 117 H 05/30/23 07:12 Respiratory Rate 20 05/30/23 07:12 Blood Pressure 123/83 05/30/23 07:12 O2 Sat by Pulse Oximetry 98 05/30/23 07:12 Pain Scale Pain Intensity 6 - Physical Exam General Appearance: no apparent distress, alert Eyes, Ears, Nose, Throat Exam: normal ENT inspection Neck Exam: normal inspection, full range of motion Cardiovascular/Respiratory Exam: normal breath sounds, tachycardia Abdominal Exam: non-tender, soft Shoulder Exam: normal inspection, non-tender, no evidence of injury, normal ROM Elbow/Forearm Exam: normal ROM, pain, soft tissue tenderness (Right posterior elbow with firm to soft consistency, diffuse erythema around. Mild increased temperature. Mild to moderate tenderness. No obvious bony tenderness.), swelling Wrist Exam: normal inspection, non-tender, no evidence of injury, normal ROM Hand Exam: normal inspection, non-tender, no evidence of injury, normal ROM Neuro/Tendon Exam: normal sensation, normal motor functions, normal tendon functions Mental Status Exam: alert, oriented x 3, cooperative Skin Exam: normal color SpO2 Interpretation: normal SpO2: 98 O2 Delivery: Room Air Ordered Tests: Active Orders 24 hr Category Date Time Status ELBOW (MINIMUM 3 VIEWS) Stat Exams 05/30/23 07:20 Completed BLOOD CULTURE Routine Lab 05/30/23 07:50 Received BLOOD CULTURE Stat Lab 05/30/23 07:41 Received CBC W DIFF Stat Lab 05/30/23 07:27 Completed CMP Stat Lab 05/30/23 07:41 Completed CULTURE,WOUND Stat Lab 05/30/23 Ordered Erythrocyte Sedimentation Rate Stat Lab 05/30/23 07:27 Completed Lactic Acid Stat Lab 05/30/23 08:47 Completed PROCALCITONIN Stat Lab 05/30/23 07:50 Completed Uric Acid Stat Lab 05/30/23 07:41 Completed Medication Summary Discontinued Medications Generic Name Dose Route Start Last Admin Trade Name Radha PRN Reason Stop Dose Admin Doxycycline Hyclate 100 mg 05/30/23 10:29 Doxycycline Hyclate 100 Mg Tablet PO 05/30/23 10:30 STAT ONE Ketorolac Tromethamine 30 mg 05/30/23 07:29 05/30/23 07:43 Ketorolac Tromethamine 30 Mg/Ml Inj IM 05/30/23 07:30 30 mg STAT ONE Administration Ketorolac Tromethamine Confirm 05/30/23 07:41 Ketorolac Tromethamine 30 Mg/Ml Inj Administered 05/30/23 07:42 Dose 30 mg .ROUTE .STK-MED ONE Lab/Rad Data: Laboratory Result Diagrams 05/30/23 07:27 05/30/23 07:41 Laboratory Results 05/30/23 05/30/23 05/30/23 Range/Units 08:47 07:50 07:41 WBC (4.0-10.5) x10^3/uL RBC (4.1-5.4) x10^6/uL Hgb (12.0-16.0) g/dL Hct (35-47) % MCV (78-100) fL MCH (26-32) pg MCHC (32-36) g/dL RDW (11.5-14.0) % Plt Count (150-450) x10^3/uL MPV (7.5-11.0) fL Gran % (36.0-66.0) % Immature Gran % (Auto) (0.00-0.4) % Nucleat RBC Rel Count (0.00-0.1) % Eos # (Auto) (0-0.5) x10^3/uL Immature Gran # (Auto) (0.00-0.03) x10^3u/L Absolute Lymphs (auto) (1.0-4.6) x10^3/uL Absolute Monos (auto) (0.0-1.3) x10^3/uL Absolute Nucleated RBC (0.00-0.01) x10^3u/L Lymphocytes % (24.0-44.0) % Monocytes % (0.0-12.0) % Eosinophils % (0.00-5.0) % Basophils % (0.0-0.4) % Absolute Granulocytes (1.4-6.9) x10^3/uL Basophils # (0-0.4) x10^3/uL ESR (0-20) mm/hr Sodium (137-145) mmol/L Potassium (3.5-5.1) mmol/L Chloride (98-107) mmol/L Carbon Dioxide (22-30) mmol/L Anion Gap (5-15) MEQ/L BUN (7-17) mg/dL Creatinine (0.52-1.04) mg/dL Estimated GFR ML/MIN Glucose (74-106) mg/dL Lactic Acid 1.6 (0.4-2.0) Uric Acid 7.2 H (2.6-6.0) mg/dL Calcium (8.4-10.2) mg/dL Total Bilirubin (0.2-1.3) mg/dL AST (14-36) U/L ALT (0-35) U/L Alkaline Phosphatase (38-126) U/L Serum Total Protein (6.3-8.2) g/dL Albumin (3.5-5.0) g/dL Procalcitonin 0.076 (0.030-0.080) ng/mL 05/30/23 05/30/23 Range/Units 07:41 07:27 WBC 12.9 H (4.0-10.5) x10^3/uL RBC 4.85 (4.1-5.4) x10^6/uL Hgb 14.5 (12.0-16.0) g/dL Hct 44.7 (35-47) % MCV 92.2 (78-100) fL MCH 29.9 (26-32) pg MCHC 32.4 (32-36) g/dL RDW 13.1 (11.5-14.0) % Plt Count 307 (150-450) x10^3/uL MPV 9.7 (7.5-11.0) fL Gran % 81.1 H (36.0-66.0) % Immature Gran % (Auto) 0.5 H (0.00-0.4) % Nucleat RBC Rel Count 0.0 (0.00-0.1) % Eos # (Auto) 0.07 (0-0.5) x10^3/uL Immature Gran # (Auto) 0.06 H (0.00-0.03) x10^3u/L Absolute Lymphs (auto) 1.47 (1.0-4.6) x10^3/uL Absolute Monos (auto) 0.80 (0.0-1.3) x10^3/uL Absolute Nucleated RBC 0.00 (0.00-0.01) x10^3u/L Lymphocytes % 11.4 L (24.0-44.0) % Monocytes % 6.2 (0.0-12.0) % Eosinophils % 0.5 (0.00-5.0) % Basophils % 0.3 (0.0-0.4) % Absolute Granulocytes 10.42 H (1.4-6.9) x10^3/uL Basophils # 0.04 (0-0.4) x10^3/uL ESR 55 H (0-20) mm/hr Sodium 137 (137-145) mmol/L Potassium 4.2 (3.5-5.1) mmol/L Chloride 103 (98-107) mmol/L Carbon Dioxide 24 (22-30) mmol/L Anion Gap 13.4 (5-15) MEQ/L BUN 21 H (7-17) mg/dL Creatinine 0.91 (0.52-1.04) mg/dL Estimated GFR 72.2 ML/MIN Glucose 119 H (74-106) mg/dL Lactic Acid (0.4-2.0) Uric Acid (2.6-6.0) mg/dL Calcium 9.6 (8.4-10.2) mg/dL Total Bilirubin 0.70 (0.2-1.3) mg/dL AST 23 (14-36) U/L ALT 24 (0-35) U/L Alkaline Phosphatase 66 (38-126) U/L Serum Total Protein 7.9 (6.3-8.2) g/dL Albumin 4.3 (3.5-5.0) g/dL Procalcitonin (0.030-0.080) ng/mL - Progress Progress: improved, re-examined Progress Note: 05/30/23 10:31 58 years old is evaluated for right elbow pain and swelling without any limitation range of motion. No fever or chills reported. I have given her Toradol with symptomatic relief. Workup showed white count of 12.9, normal lactate, ESR of 55, x-rays showed possible bursitis but no other osseous abnormality. Chemistries fairly unremarkable otherwise. I have discussed with Dr. Arguello orthopedic surgeon who has seen patient in the emergency room and has tapped the swelling and thinks it is probably gout related. Will continue with NSAIDs and will give doxycycline until her culture comes back. Patient would follow-up with orthopedics. Discussed signs symptoms of worsening needing return to ER which she seems understanding. Stable for discharge. Discussed with Dr.: Other (Dr. Arguello orthopedic surgeon) Counseled pt/family regarding: lab results, diagnosis, need for follow-up, rad results Medical Desision Making - Discussion of managment Care discussed with:: specialist (Dr. Arguello orthopedic) Reviewed:: Test results, Need for additional workup Agreed on:: Treatment plan, need for follow-up Will see patient: in ED - Diagnostic Testing Diagnostic test were ordered, analyzed, and reviewed by me: Yes Radiological Interpretation: Reviewed by me - Risk of complications The pt has a mod risk of morbidity or mortality based on: Need for prescription drug management - Departure Departure Disposition: Home Clinical Impression: Olecranon bursitis of right elbow Condition: Stable Critical Care Time: No Referrals: DOCTOR,NO FAMILY [NON-STAFF PHY W/O PRIVILEGES] - Follow up/PCP as directed CHELSEA ARGUELLO MD [ACTIVE STAFF] - Follow up/PCP as directed KARL - [employer] NP [NON-STAFF PHY W/O PRIVILEGES] - Follow up/PCP as directed (Call for appointment with Dr. Arguello orthopedics in 2 to 3 days for reevaluation) Instructions: Olecranon Bursitis (DC) Additional Instructions: Intermittent ice application. Take Tylenol/ibuprofen as needed. Follow-up with orthopedics for reevaluation in 2 to 3 days. Return to ER for intractable pain swelling increasing redness, fever chills, difficulty movements at the elbow etc. Prescriptions: Ibuprofen 600 mg PO Q6HPRN PRN 10 Days #20 tablet PRN Reason: Pain Doxycycline Hyclate 100 mg [Vibramycin 100 MG] 100 mg PO BID #14 tab
[2023-05-30 08:07] LABS: Erythrocyte Sedimentation Rate 55 mm/hr (0-20)
[2023-05-30 08:15] LABS: ALBUMIN 4.3 g/dL (3.5-5.0); ANION GAP 13.4 MEQ/L (5-15); BILIRUBIN,TOTAL 0.7 mg/dL (0.2-1.3); Calcium 9.6 mg/dL (8.4-10.2); Creatinine 1 0.91 mg/dL (0.52-1.04); EST GLOMERULAR FILTRATION RATE 72.2 ML/MIN; Potassium 4.2 mmol/L (3.5-5.1); Total Protein 7.9 g/dL (6.3-8.2)
[2023-05-30 08:19] VITALS: RESP 16
--- NOTE | 2023-05-30 09:40 | XRAY ---
Indication: Pain and swelling. No known injury. Comparison: None 3 view right elbow demonstrates posterior soft tissue swelling, possible bursitis. Elsewhere tiny spurring medial/lateral epicondyle and olecranon processes. No other bony, articular, or soft tissue abnormalities.
[2023-05-30 10:08] VITALS: BP 110/83; PULSE 96
--- NOTE | 2023-05-30 10:20 | PCM.HP ---
History of Present Illness - Chief Complaint History of Present Illness: is a 58 year old female.Right elbowPain and swelling for 2 days. No injury. Has history of gout. Has had erythema and fevers and chills. Has not been on antibiotics. Has had aspirated 2 years ago. No surgical drainage before. She is on medication for gout and takes anti-inflammatories Medications & Allergies Home Medications: Home Medication List Lisinopril/Hydrochlorothiazide [Lisinopril-Hctz 20-12.5 mg Tab] 1 tab PO DAILY 06/05/12 [History Confirmed 05/30/23] Allopurinol 100 mg [Zyloprim 100 mg] 100 mg PO DAILY 09/14/22 [History Confirmed 05/30/23] Allergies/Adverse Reactions: Allergies Allergy/AdvReac Type Severity Reaction Status Date / Time Sulfa (Sulfonamide Allergy Verified 05/30/23 07:10 Antibiotics) - Past Medical History Past Medical History: Yes Neurological History: Migraines ENT History: No Pertinent History Cardiac History: Hypertension Respiratory History: No Pertinent History Endocrine Medical History: No Pertinent History Musculoskelatal History: Other GI Medical History: No Pertinent History History: No Pertinent History Pyscho-Social History: No Pertinent History Reproductive Disorders: No Pertinent History Comment: bulging disc - Past Surgical History Past Surgical History: Yes Neuro Surgical History: No Pertinent History Cardiac History: No Pertinent History Respiratory Surgery: No Pertinent History GI Surgical History: No Pertinent History Genitourinary Surgical Hx: No Pertinent History Musculskeletal Surgical Hx: No Pertinent History Female Surgical History: Tubal Ligation, Other Other Surgical History: ovary removed w/cyst ,childbirth x two - Social History Smoking Status: Current every day smoker How long have you smoked: years Exposure to second hand smoke: Yes Alcohol: Rarely Drug Use: none - Physical Exam Vital Signs: Vital Signs - 24 hr Temp Pulse Resp BP Pulse Ox 05/30/23 10:00 96 H 110/83 94 L 05/30/23 09:00 98 H 109/76 91 L 05/30/23 08:32 98 05/30/23 08:00 99 H 16 111/79 93 L 05/30/23 07:12 98.2 F 117 H 20 123/83 98 Additional Findings: 05/30/23 10:16 Pleasant female, no prior distress, moderately obese. Right elbow shows moderate olecranon swelling with erythema extending in about a 8 cm [place]. Tenderness with palpation or motion. Moving fingers well. Good sensation. No wounds. Able to actively extend the elbow Results - Labs Lab/Micro Results: Lab Results-Last 24 Hours 05/30/23 05/30/23 05/30/23 Range/Units 07:27 07:41 07:41 WBC 12.9 H (4.0-10.5) x10^3/uL RBC 4.85 (4.1-5.4) x10^6/uL Hgb 14.5 (12.0-16.0) g/dL Hct 44.7 (35-47) % MCV 92.2 (78-100) fL MCH 29.9 (26-32) pg MCHC 32.4 (32-36) g/dL RDW 13.1 (11.5-14.0) % Plt Count 307 (150-450) x10^3/uL MPV 9.7 (7.5-11.0) fL Gran % 81.1 H (36.0-66.0) % Immature Gran % (Auto) 0.5 H (0.00-0.4) % Nucleat RBC Rel Count 0.0 (0.00-0.1) % Eos # (Auto) 0.07 (0-0.5) x10^3/uL Immature Gran # (Auto) 0.06 H (0.00-0.03) x10^3u/L Absolute Lymphs (auto) 1.47 (1.0-4.6) x10^3/uL Absolute Monos (auto) 0.80 (0.0-1.3) x10^3/uL Absolute Nucleated RBC 0.00 (0.00-0.01) x10^3u/L Lymphocytes % 11.4 L (24.0-44.0) % Monocytes % 6.2 (0.0-12.0) % Eosinophils % 0.5 (0.00-5.0) % Basophils % 0.3 (0.0-0.4) % Absolute Granulocytes 10.42 H (1.4-6.9) x10^3/uL Basophils # 0.04 (0-0.4) x10^3/uL ESR 55 H (0-20) mm/hr Sodium 137 (137-145) mmol/L Potassium 4.2 (3.5-5.1) mmol/L Chloride 103 (98-107) mmol/L Carbon Dioxide 24 (22-30) mmol/L Anion Gap 13.4 (5-15) MEQ/L BUN 21 H (7-17) mg/dL Creatinine 0.91 (0.52-1.04) mg/dL Estimated GFR 72.2 ML/MIN Glucose 119 H (74-106) mg/dL Lactic Acid (0.4-2.0) Uric Acid 7.2 H (2.6-6.0) mg/dL Calcium 9.6 (8.4-10.2) mg/dL Total Bilirubin 0.70 (0.2-1.3) mg/dL AST 23 (14-36) U/L ALT 24 (0-35) U/L Alkaline Phosphatase 66 (38-126) U/L Serum Total Protein 7.9 (6.3-8.2) g/dL Albumin 4.3 (3.5-5.0) g/dL Procalcitonin (0.030-0.080) ng/mL 05/30/23 05/30/23 Range/Units 07:50 08:47 WBC (4.0-10.5) x10^3/uL RBC (4.1-5.4) x10^6/uL Hgb (12.0-16.0) g/dL Hct (35-47) % MCV (78-100) fL MCH (26-32) pg MCHC (32-36) g/dL RDW (11.5-14.0) % Plt Count (150-450) x10^3/uL MPV (7.5-11.0) fL Gran % (36.0-66.0) % Immature Gran % (Auto) (0.00-0.4) % Nucleat RBC Rel Count (0.00-0.1) % Eos # (Auto) (0-0.5) x10^3/uL Immature Gran # (Auto) (0.00-0.03) x10^3u/L Absolute Lymphs (auto) (1.0-4.6) x10^3/uL Absolute Monos (auto) (0.0-1.3) x10^3/uL Absolute Nucleated RBC (0.00-0.01) x10^3u/L Lymphocytes % (24.0-44.0) % Monocytes % (0.0-12.0) % Eosinophils % (0.00-5.0) % Basophils % (0.0-0.4) % Absolute Granulocytes (1.4-6.9) x10^3/uL Basophils # (0-0.4) x10^3/uL ESR (0-20) mm/hr Sodium (137-145) mmol/L Potassium (3.5-5.1) mmol/L Chloride (98-107) mmol/L Carbon Dioxide (22-30) mmol/L Anion Gap (5-15) MEQ/L BUN (7-17) mg/dL Creatinine (0.52-1.04) mg/dL Estimated GFR ML/MIN Glucose (74-106) mg/dL Lactic Acid 1.6 (0.4-2.0) Uric Acid (2.6-6.0) mg/dL Calcium (8.4-10.2) mg/dL Total Bilirubin (0.2-1.3) mg/dL AST (14-36) U/L ALT (0-35) U/L Alkaline Phosphatase (38-126) U/L Serum Total Protein (6.3-8.2) g/dL Albumin (3.5-5.0) g/dL Procalcitonin 0.076 (0.030-0.080) ng/mL Microbiology 05/30/23 07:50 Blood Culture Gram Stain - Final Venous Access Site - Left Not Reportable - Radiology Impressions Radiology Exams & Impressions: Radiology Procedures Category Date Time Status ELBOW (MINIMUM 3 VIEWS) Stat Exams 05/30/23 07:20 Completed Assessment/Plan (1) Olecranon bursitis of right elbow Current Visit: Yes Status: Acute Assessment & Plan: Right olecranon bursitis secondary to gout. Less likely infected.Patient consented to aspiration. This was prepped sterilely and aspirated with return of 1 cc of chalky fluid which was sent for culture. Patient may be sent home on doxycycline 1 mg p.o. twice daily for 5 days. Return to Ortho in 3 to 4 days for follow-up on culture. If infected, will require surgical drainage and wound packing. This would include the risk of bleeding, infection, damage to nerves or blood vessels, possible need for further surgery and the risk of medical anesthesia complications including the risk of . She should continue controlling her gout with good fluid intake Code(s): M70.21 - OLECRANON BURSITIS, RIGHT ELBOW
[2023-05-30] MEDS ORDERED: Vibramycin 100 MG PO ONE (10:29)
[2023-05-30 10:36] VITALS: O2SAT 98
[2023-05-30] MEDS ORDERED: Vibramycin 100 MG ONE (10:36)
== END 2023-05-30 10:59 | disposition home or self-care (01) ==
LOC: ED 07:00
DX: M70.21 Olecranon bursitis, right elbow (principal); M25.521 Pain in right elbow; I10 Essential (primary) hypertension; Z79.899 Other long term (current) drug therapy; Z72.0 Tobacco use
CPT/HCPCS: 20605; 36415; 73080; 80053; 83605; 84145; 84550; 85025; 85652; 87040; 87070; 96372; 99203; 99284; J1885; A9270-GY

== ENCOUNTER 2023-11-15 07:27 | Emergency (ER) | payer SELFPAY ==
[2023-11-15 07:56] VITALS: O2SAT 98
[2023-11-15 09:08] VITALS: PULSE 80
--- NOTE | 2023-11-15 10:03 | XRAY ---
CLINICAL HISTORY: L 1st digit pain COMPARISON: None. TECHNIQUE: X-ray of left hand was performed in 3 views: PA, oblique and lateral views. FINDINGS: Reduced bone density is seen. No prior images available for comparison. Posttraumatic changes of the scaphoid bone interfixed with linear metallic pins. Mild degenerative changes are seen at first carpometacarpal joint and radiocarpal joint. Well-defined lucent areas seen at subchondral margin of the distal radius, differential includes geode. No significant soft tissue swelling is seen. IMPRESSION: 1. No prior images available for comparison. Post traumatic changes of the scaphoid bone interfixed with linear metallic pins. 2. Mild degenerative changes are seen at first carpometacarpal joint and radiocarpal joint. DISCLAIMER:A subtle bone abnormality or fracture may not be readily apparent on x-rays, thus clinical correlation and further imaging including follow-up CT, MRI, or follow-up x-rays are advised as needed Electronically Signed by: Jonas Chiu MD. (11/15/2023 10:00:02 EDT)
[2023-11-15 10:16] VITALS: BP 168/72; RESP 22; TEMP 97.8
[2023-11-15] MEDS ORDERED: TORAdol 30 mg Injection ONE (10:18)
--- NOTE | 2023-11-15 10:18 | ERPHSYRPT ---
- History of Present Illness Source: patient Exam Limitations: no limitations Patient Subjective Stated Complaint: Pt states "I did something to my left thumb. I cannot bend it and it is killing me." Triage Nursing Assessment: Pt presented alert and oriented X 3, skin wpd. Pt ambulates with an upright steady gait, pt left thumb swollen, tender. Physician History: 58-year-old female with left first digit pain times x4 days. Pain is 8 out of 10 and worse with movement. She denies injury. Patient also denies chest pain and dyspnea. She has a history of gout and takes allopurinol Daily. She has been taking Motrin for her pain. Occurred: other (4-day) Method of Injury: unknown ( denies) Severity of Pain-Max: severe Severity of Pain-Current: severe Extremities Pain Location: thumb: left Modifying Factors: Improves With: movement Associated Symptoms: none Allergies/Adverse Reactions: Sulfa (Sulfonamide Antibiotics) Allergy (Verified 05/30/23 07:10) Home Medications: Lisinopril/Hydrochlorothiazide [Lisinopril-Hctz 20-12.5 mg Tab] 1 tab PO DAILY 06/05/12 [History] Allopurinol 100 mg [Zyloprim 100 mg] 100 mg PO DAILY 09/14/22 [History] Hx Tetanus, Diphtheria Vaccination/Date Given: Yes Hx Influenza Vaccination/Date Given: No Hx Pneumococcal Vaccination/Date Given: No Immunizations Up to Date: No Travel Risk - International Travel Have you traveled outside of the country in past 3 weeks: No - Emerging Infectious Disease Are you exhibiting symptoms associated with any current EIDs: No - Review of Systems Constitutional: No Symptoms Eyes: No Symptoms Ears, Nose, & Throat: No Symptoms Respiratory: No Symptoms Cardiac: No Symptoms Abdominal/Gastrointestinal: No Symptoms Genitourinary Symptoms: No Symptoms Skin: No Symptoms Neurological: No Symptoms Psychological: No Symptoms Endocrine: No Symptoms Hematologic/Lymphatic: No Symptoms Immunological/Allergic: No Symptoms - Past Medical History Pertinent Past Medical History: Yes Neurological History: Migraines ENT History: No Pertinent History Cardiac History: Hypertension Respiratory History: No Pertinent History Endocrine Medical History: No Pertinent History Musculoskeletal History: Other GI Medical History: No Pertinent History History: No Pertinent History Psycho-Social History: No Pertinent History Female Reproductive Disorders: No Pertinent History Other Medical History: bulging disc - Past Surgical History Past Surgical History: Yes Neuro Surgical History: No Pertinent History Cardiac: No Pertinent History Respiratory: No Pertinent History Gastrointestinal: No Pertinent History Genitourinary: No Pertinent History Musculoskeletal: No Pertinent History Female Surgical History: Tubal Ligation, Other Other Surgical History: ovary removed w/cyst ,childbirth x two - Social History Smoking Status: Current every day smoker How long have you smoked: years Exposure to second hand smoke: Yes Drug Use: none Patient Lives Alone: No - Social Determinants of Health Will the patient participate in the screening: Yes Do you worry about a steady place to live?: No Do you have any problems with any of the following?: No known problems In the past 12 months,have you had to go without utilities?: No Transportation Issues: No Has anyone in your support network made you feel unsafe?: No Have you or anyone in your house had to go without enough: No - Nursing Vital Signs Nursing Vital Signs: Initial Vital Signs Temperature 97.2 F 11/15/23 07:51 Pulse Rate 88 11/15/23 07:51 Respiratory Rate 18 11/15/23 07:51 Blood Pressure 172/90 11/15/23 07:51 O2 Sat by Pulse Oximetry 98 11/15/23 07:51 Pain Scale Pain Intensity 6 hypertensive - Physical Exam General Appearance: no apparent distress (In pain) Eyes, Ears, Nose, Throat Exam: normal ENT inspection, TMs normal, pharynx normal, moist mucous membranes Neck Exam: normal inspection, non-tender, supple, full range of motion, No Brudzinski, No Kernig's, No meningismus, No carotid bruit Cardiovascular/Respiratory Exam: normal breath sounds, regular rate/rhythm, heart sounds normal Abdominal Exam: non-tender, soft Back Exam: normal inspection, normal range of motion, No CVA tenderness, No vertebral tenderness Shoulder Exam: normal inspection, non-tender, no evidence of injury, normal ROM Elbow/Forearm Exam: normal inspection, non-tender, no evidence of injury, normal ROM Wrist Exam: normal inspection, non-tender, no evidence of injury, normal ROM Hand Exam: bone tenderness ( left first digit tenderness to palpation at the base, no deformity, pain with passive and active movement, no erythema, good distal capillary return, sensation, and good radial pulse.) Neuro/Tendon Exam: normal sensation, normal motor functions, normal tendon functions, responds to pain, no evidence tendon injury, No motor deficit, No sensory deficit Mental Status Exam: alert, oriented x 3, cooperative Skin Exam: normal color, warm, dry SpO2 Interpretation: normal SpO2: 98 O2 Delivery: Room Air - Course Nursing assessment & vital signs reviewed: Yes - Radiology Exams Hand X-ray Interpretation: Teleradiologist Report ( Left hand previous scaphoid repair mild degenerative joint disease of the left first digit) Ordered Tests: Active Orders 24 hr Category Date Time Status HAND (MINIMUM 3 VIEWS) Stat Exams 11/15/23 08:00 Completed Uric Acid Stat Lab 11/15/23 08:30 Completed Medication Summary Discontinued Medications Generic Name Dose Route Start Last Admin Trade Name Freq PRN Reason Stop Dose Admin Ketorolac Tromethamine 30 mg 11/15/23 10:12 11/15/23 10:19 Ketorolac Tromethamine 30 Mg/Ml Inj IM 11/15/23 10:13 30 mg STAT ONE Administration Ketorolac Tromethamine Confirm 11/15/23 10:18 Ketorolac Tromethamine 30 Mg/Ml Inj Administered 11/15/23 10:19 Dose 30 mg .ROUTE .[employer]-MED ONE Lab/Rad Data: Laboratory Results 11/15/23 Range/Units 08:30 Uric Acid 7.8 H (2.6-6.0) mg/dL Reviewed - Progress Progress: improved Progress Note: 11/15/23 10:26 Nursing note and vital signs reviewed. No food or housing insecurity noted All lab results thoroughly reviewed and shared with patient x-ray results thoroughly reviewed and shared with patient Left first digit pain most likely due to gout versus osteoarthritis. Patient's uric acid is up even though she is on allopurinol daily. She will be treated with Indocin 25 mg p.o. 4 times daily as needed and prednisone 10 mg daily x 3 days. She is advised to follow-up with her PCP and to return to the ER for increasing pain, any redness, temperature greater 100.5, or increasing swelling. Patient had good distal capillary return and sensation without any erythema or edema throughout entire ER stay. 30 mL IM Toradol before discharge. Blood pressure mildly elevated and patient advised to follow-up with her PCP about her blood pressure. Patient advised not to take ibuprofen when she is taking the Indocin and to discontinue it for any GI upset. 11/15/23 10:31 Counseled pt/family regarding: lab results, diagnosis, need for follow-up, rad results Medical Desision Making - Diagnostic Testing Diagnostic test were ordered, analyzed, and reviewed by me: Yes Radiological Interpretation: Teleradiologist Report - Risk of complications The pt has a mod risk of morbidity or mortality based on: Need for prescription drug management - Departure Departure Disposition: Home Clinical Impression: Gout attack Condition: Stable Critical Care Time: No Referrals: CHAAPRRITA BUTCHER NP [Primary Care Provider] - Follow up/PCP as directed Instructions: Gout Additional Instructions: Indocin 4 times a day as needed for pain Prednisone once a day for 3-day Follow-up with your family MD on Saturday Return to ER for increasing pain, swelling, any redness, or temperature greater than 1.5. Prescriptions: Prednisone 10 mg [Deltasone 10 mg] 10 mg PO DAILY 3 Days #3 tablet Indomethacin 25 mg [Indocin 25 MG] 25 mg PO QID PRN PRN #15 cap PRN Reason: Pain
[2023-11-15] MEDS: TORAdol 30 mg Injection IM ONE (10:19)
== END 2023-11-15 10:30 | disposition home or self-care (01) ==
LOC: ED 07:27
DX: M10.9 Gout, unspecified (principal); M79.645 Pain in left finger(s); I10 Essential (primary) hypertension; Z79.52 Long term (current) use of systemic steroids; Z79.899 Other long term (current) drug therapy; Z72.0 Tobacco use
CPT/HCPCS: 36415; 73130; 84550; 96372; 99283; J1885

== ENCOUNTER 2024-02-11 08:43 | Emergency (ER) | payer SELFPAY ==
[2024-02-11 08:55] VITALS: RESP 20; TEMP 98.2; O2SAT 96
--- NOTE | 2024-02-11 09:14 | ERPHSYRPT ---
- History of Present Illness Time Seen by Provider: 02/11/24 09:00 Source: patient Exam Limitations: no limitations Patient Subjective Stated Complaint: Pt states "I can barely hear out of my right ear and it hurts. Also I have been out of my blood pressure meds and my blood pressure was high." Triage Nursing Assessment: PT presented alert and oriented X 3, skin pwd. Pt ambulates with an upright steady gait, able to speak in clear full sentences. Pt resting comfortably on the bed. Physician History: 58-year-old female presents to emergency department for evaluation of elevated blood pressure, pressure in right ear with muffled sound. Patient advises that she has not taken her blood pressure medication in several weeks. However patient currently has an appointment with her family doctor to address her blood pressure medication problem. Patient reports she was ambulating throughout a local pharmacy. She sat down to check her blood pressure and observed it was elevated. Patient states his systolic was in the 180s. However upon my evaluation it was observed that patient's blood pressure was 145/95. Patient advised that she has been congested. No ear drainage. No dizziness. No nausea no vomiting no diaphoresis. Patient denies fever no neck pain no photophobia no meningeal signs. Patient otherwise feels well. She voices no other complaints or concerns at this time. Portions of this note were created with voice recognition technology. There may be grammatical, spelling, punctuation or sound alike errors Timing/Duration: today Severity: moderate Modifying Factors: Improves With: nothing Associated Symptoms: other (URI, sinus congestion) Allergies/Adverse Reactions: Sulfa (Sulfonamide Antibiotics) Allergy (Verified 05/30/23 07:10) Home Medications: Lisinopril/Hydrochlorothiazide [Lisinopril-Hctz 20-12.5 mg Tab] 1 tab PO DAILY 06/05/12 [History] Allopurinol 100 mg [Zyloprim 100 mg] 100 mg PO DAILY 09/14/22 [History] Hx Tetanus, Diphtheria Vaccination/Date Given: Yes Hx Influenza Vaccination/Date Given: No Hx Pneumococcal Vaccination/Date Given: No Immunizations Up to Date: No Travel Risk - International Travel Have you traveled outside of the country in past 3 weeks: No - Emerging Infectious Disease Are you exhibiting symptoms associated with any current EIDs: No - Review of Systems Constitutional: No Symptoms, No Fever, No Chills Eyes: No Symptoms Ears, Nose, & Throat: No Symptoms Respiratory: No Symptoms, No Cough, No Dyspnea Cardiac: No Symptoms, No Chest Pain, No Edema, No Syncope Abdominal/Gastrointestinal: No Symptoms, No Abdominal Pain, No Nausea, No Vomiting, No Diarrhea Genitourinary Symptoms: No Symptoms, No Dysuria Musculoskeletal: No Symptoms, No Back Pain, No Neck Pain Skin: No Symptoms, No Rash Neurological: No Symptoms, No Dizziness, No Focal Weakness, No Sensory Changes Psychological: No Symptoms Endocrine: No Symptoms Hematologic/Lymphatic: No Symptoms Immunological/Allergic: No Symptoms All Other Systems: Reviewed and Negative - Past Medical History Pertinent Past Medical History: Yes Neurological History: Migraines ENT History: No Pertinent History Cardiac History: Hypertension Respiratory History: No Pertinent History Endocrine Medical History: No Pertinent History Musculoskeletal History: Other GI Medical History: No Pertinent History History: No Pertinent History Psycho-Social History: No Pertinent History Female Reproductive Disorders: No Pertinent History Other Medical History: bulging disc - Past Surgical History Past Surgical History: Yes Neuro Surgical History: No Pertinent History Cardiac: No Pertinent History Respiratory: No Pertinent History Gastrointestinal: No Pertinent History Genitourinary: No Pertinent History Musculoskeletal: No Pertinent History Female Surgical History: Tubal Ligation, Other Other Surgical History: ovary removed w/cyst ,childbirth x two - Social History Smoking Status: Current every day smoker How long have you smoked: years Exposure to second hand smoke: Yes Drug Use: none Patient Lives Alone: No - Social Determinants of Health Will the patient participate in the screening: Yes Do you worry about a steady place to live?: No Do you have any problems with any of the following?: No known problems In the past 12 months,have you had to go without utilities?: No Transportation Issues: No Has anyone in your support network made you feel unsafe?: No Have you or anyone in your house had to go without enough: No - Nursing Vital Signs Nursing Vital Signs: Initial Vital Signs Temperature 98.2 F 02/11/24 08:51 Pulse Rate 92 H 02/11/24 08:51 Respiratory Rate 20 02/11/24 08:51 Blood Pressure 180/99 02/11/24 08:51 O2 Sat by Pulse Oximetry 96 02/11/24 08:51 Pain Scale Pain Intensity 8 - Physical Exam General Appearance: no apparent distress, alert Eye Exam: PERRL/EOMI, eyes nml inspection Ears, Nose, Throat Exam: normal ENT inspection, TMs normal, pharynx normal, moist mucous membranes, other (Sinus tenderness nasal congestion) Neck Exam: normal inspection, non-tender, supple, full range of motion Respiratory Exam: normal breath sounds, lungs clear, No respiratory distress Cardiovascular Exam: regular rate/rhythm, normal heart sounds, normal peripheral pulses Gastrointestinal/Abdomen Exam: soft, normal bowel sounds, No tenderness, No mass Back Exam: normal inspection, normal range of motion, No CVA tenderness, No vertebral tenderness Extremity Exam: normal inspection, normal range of motion, pelvis stable Neurologic Exam: alert, oriented x 3, cooperative, normal mood/affect, nml cerebellar function, nml station & gait, sensation nml, No motor deficits Skin Exam: normal color, warm, dry, No rash Lymphatic Exam: No adenopathy SpO2 Interpretation: normal SpO2: 96 O2 Delivery: Room Air - Course Nursing assessment & vital signs reviewed: Yes - Progress Progress: improved Progress Note: 58-year-old female presents to our ED for evaluation of elevated blood pressure and diminished sound pressure right ear. No active pain during my evaluation. Physical exam reveals both ears to appear normal on otoscopy. No ear drainage normal TM. No mastoid pain or tenderness. Patient's hearing acuity is grossly normal. Patient's blood pressure upon arrival had improved from the 180 that she observed when she checked her blood pressure at the store. Placed since blood pressure normalized as during my physical exam blood pressure was observed to be 145/95. Patient asymptomatic. She currently has a follow-up appointment with her family doctor next week. No indication for antihypertensives at this time. Patient may benefit from [id number] nasal decongestions. No indication for a prescription grade medications at this time. Patient physical exam otherwise normal. Patient advised [id number] decongestion. Patient agreed to try and will follow-up with her family doctor regarding this issue next week if it continues. Will discharge home. Patient voices no other complaints or concerns at this time. Portions of this note were created with voice recognition technology. There may be grammatical, spelling, punctuation or sound alike errors Complexity problem addressed is moderate acute complicated. No critical care time. Complex of data reviewed and analyzed is none. No specialized testing ordered. Diagnosis made based on history and physical exam. Risk of complication and or risk of morbidity/mortality of patient management is low. Vital stable. Time spent to discharge patient approximately 15 minutes. Plan of care established for shared decision making. No social determinants of health present to impede follow-up. Portions of this note were created with voice recognition technology. There may be grammatical, spelling, punctuation or sound alike errors 02/11/24 09:22 Counseled pt/family regarding: lab results, diagnosis, need for follow-up, rad results - Departure Departure Disposition: Home Clinical Impression: URI (upper respiratory infection), Congestion of nasal sinus Condition: Stable Critical Care Time: No Referrals: CHAPARRITA BUTCHER NP [Primary Care Provider] - Follow up/PCP as directed Additional Instructions: [id number] nasal decongestion Discharge/Care Plan CHARAN MESA was seen on 02/11/24 in the Emergency Room. The patient was counseled regarding Diagnosis,Lab results, Imaging studies, need for follow up and when to return to the Emergency Room. Prescriptions given: Discharge Note I have spoken with the patient and/or caregivers. I have explained the patient's condition, diagnosis and treatment plan based on the information available to me at this time. I have answered the patient's and/or caregiver's questions and addressed any concerns. The patient and/or caregivers have as good understanding of the patient's diagnosis, condition and treatment plan as can be expected at this point. The vital signs have been stable. The patient's condition is stable and appropriate for discharge from the emergency department. The patient will pursue further outpatient evaluation with the primary care physician or other designated or consulting physician as outlined in the discharge instructions. The patient and/or caregivers are agreeable to this plan of care and follow-up instructions have been explained in detail. The patient and/or caregivers have received these instruction. The patient/and or caregivers are aware that any significant change in condition or worsening of symptoms bryon uld prompt an immediate return to this or the closest emergency department or call 911.
[2024-02-11 09:16] VITALS: BP 158/94; PULSE 83
== END 2024-02-11 09:22 | disposition home or self-care (01) ==
LOC: ED 08:43
DX: J06.9 Acute upper respiratory infection, unspecified (principal); R09.81 Nasal congestion; I10 Essential (primary) hypertension; Z79.899 Other long term (current) drug therapy
CPT/HCPCS: 99281